=== PATIENT | male | born 2005 | race African-American/Black ===

== ENCOUNTER 2024-06-14 20:20 | Emergency (ER) | payer SELFPAY ==
--- NOTE | 2024-06-14 20:39 | EDPHYS ---
Physician Documentation [facility] Name: Karen Engle Age: 18 yrs Sex: Male : 2005 Arrival Date: 06/14/2024 Time: 20:20 Bed Waiting Private MD: ED Physician Alexandr Montez HPI: 06/14 23:09 This 18 yrs old Black Male presents to ER via Ambulatory with complaints of Ear Pain. kb 23:09 Pt is a 18 year old female who presents for left ear pain that started a few days ago. kb states it has been painful and draining. denies fever or any other symptoms. Historical: - Allergies: 20:34 No Known Allergies; me1 - Home Meds: 20:34 None [Active]; me1 - PMHx: 20:34 None; me1 - PSHx: 20:34 None; me1 - Immunization history:: Adult Immunizations up to date. - Infectious Disease History:: Denies. - Social history:: Smoking status: Patient denies any tobacco usage or history of. ROS: 23:08 Constitutional: As per HPI kb Exam: 23:08 Constitutional: This is a well developed, well nourished patient who is awake, alert, kb and in no acute distress. Head/Face: Normocephalic, atraumatic. Cardiovascular: Regular rate Respiratory: Respirations even and unlabored. No increased work of breathing. Talking in full sentences Skin: Warm, dry with normal turgor. Normal color. MS/ Extremity: Pulses equal, no cyanosis. Neurovascular intact. Full, normal range of motion. Neuro: Awake and alert, GCS 15, oriented to person, place, time, and situation. 23:08 ENT: Ear canal(s): purulent discharge, that is minimal, in the left canal, swelling, that is moderate, of the left canal, TM's: are normal, Vital Signs: 20:33 BP 159 / 83; Pulse 63; Resp 17; Temp 98.2; Pulse Ox 100% ; Weight 90.72 kg; Height 5 me1 ft. 7 in. ; Pain 10/10; 20:33 Body Mass Index 31.32 (90.72 kg, 170.18 cm) me1 20:33 Pain Scale: Adult me1 MDM: 20:23 Medical Screening Exam initiated kb 23:08 Differential diagnosis: otitis media, otitis externa, ruptured TM, foreign body, acute kb otalgia. Data reviewed: vital signs, nurses notes. Counseling: I had a detailed discussion with the patient and/or guardian regarding the historical points, exam findings, and any diagnostic results supporting the discharge/admit diagnosis, the need for outpatient follow up, an ENT specialist, to return to the emergency department if symptoms worsen or persist or if there are any questions or concerns that arise at home. Administered Medications: 20:41 Drug: HYDROcodone-acetaminophen PO 5 mg-325 mg 1 tabs PO once Route: PO; me1 20:41 Follow up: Response: No adverse reaction me1 Disposition: 06/15 03:51 Co-signature as Attending Physician, Alexandr Montez MD I agree with the assessment sp4 and plan of care. I reviewed the patient's care provided by the Advanced Practice Provider and agree with the diagnosis and treatment plan. Disposition Summary: 06/14/24 20:39 Discharge Ordered Notes: Location: Home kb Condition: Stable kb Diagnosis - Unspecified otitis externa, left ear kb Followup: kb - With: Emergency Department - When: As needed - Reason: Worsening of condition Followup: kb - With: Private Physician - When: 2 - 3 days - Reason: Recheck today's complaints, Continuance of care, Re-evaluation by your physician Discharge Instructions: - Discharge Summary Sheet kb - Ear Drops, Adult kb - Otitis Externa, [id number] kb Forms: - Medication Reconciliation Form kb - Antibiotic Education kb - Prescription Opioid Use kb - Patient Portal Instructions kb - Leadership Thank You Letter kb Prescriptions: - Ciprodex 0.3-0.1 % Otic drops, suspension - instill 4 drops OTIC route every 12 hours for 7 days , for ears ONLY; 1 kb Unspecified; Refills: 0, Product Selection Permitted Signatures: Natasha Morley FNP-C FNP-Ckb Potepalov, Sergey, MD MD sp4 Virginia Bolaños RN RN me1
--- NOTE | 2024-06-14 20:39 | ER ---
Nurse's Notes [facility] Name: Karen Engle Age: 18 yrs Sex: Male : 2005 Arrival Date: 06/14/2024 Time: 20:20 Bed Waiting Private MD: Diagnosis: Unspecified otitis externa, left ear Presentation: 06/14 20:33 Chief complaint: Patient states: c/o left ear pain that started 3 days ago and has me1 yellow drainage from his ear. 10 pain. Coronavirus screen: Vaccine status: Patient reports receiving the 2nd dose of the covid vaccine. Ebola Screen: No symptoms or risks identified at this time. Initial Sepsis Screen: Does the patient meet any 2 criteria? No. Patient's initial sepsis screen is negative. Does the patient have a suspected source of infection? No. Patient's initial sepsis screen is negative. Risk Assessment: Do you want to hurt yourself or someone else? Patient reports no desire to harm self or others. Onset of symptoms was June 11, 2024. 20:33 Method Of Arrival: Amb[place] [facility] 20:33 Acuity: ELLY 5 me1 Triage Assessment: 20:34 General: Appears in no apparent distress. well groomed, well developed, well nourished, me1 Behavior is calm, cooperative, appropriate for age. Pain: Complains of pain in left ear Pain currently is 10 out of 10 on a pain scale. Quality of pain is described as sharp, throbbing, Pain began 2-3 days ago. Is continuous. EENT: Reports pain in left ear. Neuro: Level of Consciousness is awake, alert, obeys commands, Oriented to person, place, time, situation, Appropriate for age. Cardiovascular: Patient's skin is warm and dry. Respiratory: Airway is patent Respiratory effort is even, unlabored, Respiratory pattern is regular, symmetrical. GI: No signs and/or symptoms were reported involving the gastrointestinal system. : No signs and/or symptoms were reported regarding the genitourinary system. Derm: Skin is intact, is healthy with good turgor, Skin is pink, warm \T\ dry. Musculoskeletal: No signs and/or symptoms reported regarding the musculoskeletal system. Historical: - Allergies: 20:34 No Known Allergies; me1 - Home Meds: 20:34 None [Active]; me1 - PMHx: 20:34 None; me1 - PSHx: 20:34 None; me1 - Immunization history:: Adult Immunizations up to date. - Infectious Disease History:: Denies. - Social history:: Smoking status: Patient denies any tobacco usage or history of. Screenin:36 [facility] ED Fall Risk Assessment (Adult) History of falling in the last 3 months, me1 including since admission No falls in past 3 months (0 pts) Confusion or Disorientation No (0 pts) Intoxicated or Sedated No (0 pts) Impaired Gait No (0 pts) Mobility Assist Device Used No (0 pt) Altered Elimination No (0 pt) Score/Fall Risk Level 0 - 2 = Low Risk Maintained a safe environment, Provided non-skid footwear, Hourly rounding (assess needs \T\ fall precautionary measures) done. Abuse screen: Denies threats or abuse. Nutritional screening: No deficits noted. Tuberculosis screening: No symptoms or risk factors identified. Assessment: 20:36 General: See triage assessment.. me1 Vital Signs: 20:33 BP 159 / 83; Pulse 63; Resp 17; Temp 98.2; Pulse Ox 100% ; Weight 90.72 kg; Height 5 me1 ft. 7 in. ; Pain 10/10; 20:33 Body Mass Index 31.32 (90.72 kg, 170.18 cm) me1 20:33 Pain Scale: Adult ok1 ED Course: 20:22 Patient arrived in ED. mr 20:22 Natasha Morley FNP-C is [facility]. kb 20:22 Alexandr Montez MD is Attending Physician. kb 20:34 Triage completed. me1 20:34 Arm band placed on Patient placed in an exam room. me1 20:36 Patient has correct armband on for positive identification. Bed in low position. Call me1 light in reach. Side rails up X2. Provided Education on: POC. Verbalized understanding.. 20:36 No provider procedures requiring assistance completed. Patient did not have IV access me1 during this emergency room visit. 20:38 Virginia Bolaños, CRYSTAL is Primary Nurse. me1 Administered Medications: 20:41 Drug: HYDROcodone-acetaminophen PO 5 mg-325 mg 1 tabs PO once Route: PO; me1 20:41 Follow up: Response: No adverse reaction me1 Medication: 20:36 VIS not applicable for this client. me1 Outcome: 20:39 Discharge ordered by MD. watson 20:44 Discharged to home ambulatory, with significant other, me1 20:44 Condition: stable 20:44 Discharge instructions given to patient, significant other, Instructed on discharge instructions, follow up and referral plans. medication usage, Demonstrated understanding of instructions, follow-up care, medications, Prescriptions given X 1, 20:45 Patient left the ED. me1 Signatures: Natasha Morley, YOUTH SUPPORT WORKER-C YOUTH SUPPORT WORKER-Robyn Lozoya, Reg Reg mr Virginia Bolaños, RN RN me1
[2024-06-14] MEDS ORDERED: HYDROCODONE/APAP 5/325 MG TAB ONE (20:40)
[2024-06-15 00:55] VITALS: BP 159/83; TEMP 98.2; O2SAT 100
== END 2024-06-14 20:45 | disposition home or self-care (01) ==
LOC: ER 20:20
DX: H60.92 Unspecified otitis externa, left ear (principal)

== ENCOUNTER 2024-09-06 11:27 | Emergency (ER) | payer OTHER, SELFPAY ==
--- NOTE | 2024-09-06 12:06 | EDPHYS ---
Physician Documentation [facility] Name: Karen nEgle Age: 18 yrs Sex: Male : 2005 Arrival Date: 09/06/2024 Time: 11:27 Bed 11 Private MD: ED Physician Jamshid Youssef HPI: 09/06 12:06 This 18 yrs old Black Male presents to ER via Ambulatory with complaints of STD rt Exposure. 12:06 Patient presents to the ED with green discharge from the penis with dysuria. Denies rt other acute complaints at this time, symptoms are moderate severity, no other aggravating alleviating factors.. Historical: - Allergies: 11:56 No Known Allergies; db - Home Meds: 11:56 None [Active]; db - PMHx: :56 None; db - PSHx: :56 None; db - Immunization history:: Adult Immunizations unknown. - Infectious Disease History:: Denies. - Social history:: Smoking status: Reported history of juuling and/or vaping. - Family history:: not pertinent. ROS: 12:06 Constitutional: Negative for fever, chills, and weight loss, Abdomen/GI: Negative for rt abdominal pain, nausea, vomiting, diarrhea, and constipation, Skin: Negative for injury, rash, and discoloration, Neuro: Negative for headache, weakness, numbness, tingling, and seizure, 12:06 : Positive for burning with urination, penile discharge, Exam: 12:06 Constitutional: This is a well developed, well nourished patient who is awake, alert, rt and in no acute distress. Head/Face: Normocephalic, atraumatic. Chest/axilla: Normal chest wall appearance and motion. Nontender with no deformity. No lesions are appreciated. Cardiovascular: Regular rate and rhythm with a normal S1 and S2. No gallops, murmurs, or rubs. Normal PMI, no JVD. No pulse deficits. Respiratory: Lungs have equal breath sounds bilaterally, clear to auscultation and percussion. No rales, rhonchi or wheezes noted. No increased work of breathing, no retractions or nasal flaring. Abdomen/GI: Soft, non-tender, with normal bowel sounds. No distension or tympany. No guarding or rebound. No evidence of tenderness throughout. 12:06 : Deferred due to the patient's children being in the room, Vital Signs: 11:54 BP 154 / 85; Pulse 69; Resp 16; Temp 98.1; Pulse Ox 98% ; Weight 99.79 kg; Height 5 ft. db 7 in. ; 11:54 Body Mass Index 34.46 (99.79 kg, 170.18 cm) db MDM: 11:58 Medical Screening Exam initiated rt 12:06 Differential Diagnosis Urethritis, GC. Data reviewed: vital signs, nurses notes. I rt considered the following discharge prescriptions or medication management in the emergency department Medications were administered in the Emergency Department. See MAR. Counseling: I had a detailed discussion with the patient and/or guardian regarding the historical points, exam findings, and any diagnostic results supporting the discharge/admit diagnosis, the need for outpatient follow up. 09/06 12:03 Order name: GC (Rojelio/Chl) Probe URINE rt Administered Medications: 12:26 Drug: Rocephin (cefTRIAXone) IM 500 mg IM once Route: IM; Site: right ventrogluteal; iw Disposition Summary: 09/06/24 12:05 Discharge Ordered Notes: Location: Home rt Problem: new rt Symptoms: are unchanged rt Condition: Stable rt Diagnosis - Nonspecific urethritis rt Followup: rt - With: Private Physician - When: 2 - 3 days - Reason: Discharge Instructions: - Discharge Summary Sheet rt - Urethritis, Adult rt Forms: - Medication Reconciliation Form rt - Antibiotic Education rt - Prescription Opioid Use rt - Patient Portal Instructions rt - Leadership Thank You Letter rt Prescriptions: - Doxycycline Hyclate 100 mg Oral Tablet - take 1 tablet ORAL route once daily; 10 tablet; Refills: 0, Product Selection rt Permitted Signatures: Dispatcher [employer] Constance Lombardo, CRYSTAL ROJAS iw Radha Deluna RN RN db Jamshid Youssef MD MD rt
--- NOTE | 2024-09-06 12:06 | ER ---
Nurse's Notes [facility] Name: Karen Engle Age: 18 yrs Sex: Male : 2005 Arrival Date: 09/06/2024 Time: 11:27 Bed 11 Private MD: Diagnosis: Nonspecific urethritis Presentation: 09/06 11:54 Chief complaint: Patient states: PENILE GREEN DISCHARGE X 2 DAYS. HEADACHE TODAY. db STATES HAS A "CUT" ON PENIS. ALSO HAS PAIN WITH URINATION. Coronavirus screen: Client denies travel out of the [place] in the last 14 days. At this time, the client does not indicate any symptoms associated with coronavirus-19. Ebola Screen: Patient negative for fever greater than or equal to 101.5 degrees Fahrenheit, and additional compatible Ebola Virus Disease symptoms Patient denies exposure to infectious person. Patient denies travel to an Ebola-affected area in the 21 days before illness onset. No symptoms or risks identified at this time. Initial Sepsis Screen: Does the patient meet any 2 criteria? No. Patient's initial sepsis screen is negative. Does the patient have a suspected source of infection? No. Patient's initial sepsis screen is negative. Risk Assessment: Do you want to hurt yourself or someone else? Patient reports no desire to harm self or others. Onset of symptoms was September 04, 2024. 11:54 Method Of Arrival: Ambulatory db 11:54 Acuity: ELLY 4 db Triage Assessment: 11:56 General: Appears in no apparent distress. comfortable, Behavior is calm, cooperative. db Pain: Complains of pain in head of penis. Neuro: Level of Consciousness is awake, alert, obeys commands, Oriented to person, place, time, situation. Respiratory: Airway is patent Respiratory effort is even, unlabored, Respiratory pattern is regular, symmetrical. : Reports pain. Historical: - Allergies: 11:56 No Known Allergies; db - Home Meds: 11:56 None [Active]; db - PMHx: 11:56 None; db - PSHx: 11:56 None; db - Immunization history:: Adult Immunizations unknown. - Infectious Disease History:: Denies. - Social history:: Smoking status: Reported history of juuling and/or vaping. - Family history:: not pertinent. Vital Signs: 11:54 BP 154 / 85; Pulse 69; Resp 16; Temp 98.1; Pulse Ox 98% ; Weight 99.79 kg; Height 5 ft. db 7 in. ; 11:54 Body Mass Index 34.46 (99.79 kg, 170.18 cm) db ED Course: 11:35 Patient arrived in ED. cj3 11:36 Jamshid Youssef MD is Attending Physician. rt 11:56 Triage completed. db 11:56 Arm band placed on Patient placed in an exam room. db 12:00 Constance Hendrickson RN is Primary Nurse. iw Administered Medications: 12:26 Drug: Rocephin (cefTRIAXone) IM 500 mg IM once Route: IM; Site: right ventrogluteal; iw Outcome: 12:05 Discharge ordered by . rt 12:41 Patient left the ED. iw Signatures: Constance Hendrickson, RN RN iw Radha Deluna RN RN db Jamshid Youssef MD MD rt Lin Dupont [email or web address] Corrections: (The following items were deleted from the chart) 11:57 11:54 Chief complaint: Patient states: PENILE GREEN DISCHARGE X 2 DAYS. HEADACHE TODAY. db STATES HAS A "CUT" ON PENIS db
[2024-09-06] MEDS ORDERED: LIDOCAINE 1% MPF 2 ML AMPULE ONE (12:08)
[2024-09-06] MEDS ORDERED: CEFTRIAXONE 500 MG/VIAL ONE (12:08)
[2024-09-06 12:57] VITALS: BP 154/85; TEMP 98.1; O2SAT 98
== END 2024-09-06 12:41 | disposition home or self-care (01) ==
LOC: ER 11:27
DX: N34.1 Nonspecific urethritis (principal)
CPT/HCPCS: 87490; 87590